=== PATIENT | male | born 1990 | race Caucasian/White ===

== ENCOUNTER 2022-05-21 12:53 | Emergency (ER) | payer BC, SELFPAY ==
[2022-05-21 12:56] VITALS: BP 131/81; PULSE 89; RESP 16; TEMP 36.3; O2SAT 99
--- NOTE | 2022-05-21 13:12 | ED.WOUNDLAC ---
HPI - Wound/Laceration General Chief Complaint: Wound/Laceration Stated Complaint: head lac Time Seen by Provider: 05/21/22 13:02 History of Present Illness HPI narrative: This is a 32-year-old male with no past medical history, presents to the emergency department after being hit in the head with a branch. He states he was clearing brush when a approximately 3 inch diameter branch swung and hit him in his head. He denies loss of consciousness, fall or other injury. He noted mild pain at the laceration site associated with minimal nausea, both of which have improved and resolved respectively. He has no other complaints today. He states his last tetanus shot was within the last 5 years. Related Data Home Medications Medication Instructions Recorded Confirmed No Home Medications 05/21/22 05/21/22 Allergies Allergy/AdvReac Type Severity Reaction Status Date / Time No Known Allergies Allergy Verified 05/21/22 12:58 Review of Systems Review of Systems: CONSTITUTIONAL: Denies fever, chills, or sweats. EYES: Denies visual changes, redness, or discharge. ENT: Denies rhinorrhea, congestion, sore throat, or otalgia. CARDIOVASCULAR: Denies chest pain, palpitations, or edema. RESPIRATORY: Denies cough or dyspnea. GASTROINTESTINAL: Denies abdominal pain, nausea, vomiting, or diarrhea. GENITOURINARY: Denies dysuria or hematuria. SKIN: Laceration of the left parietal scalp denies rash or itching. MUSCULOSKELETAL: Denies back pain, joint pain, or myalgia. NEUROLOGIC: Denies headache, numbness, dizziness, or weakness. PSYCHIATRIC: Denies anxiety or depression. Exam Narrative: GENERAL: Well-appearing, well-nourished, and in no acute distress. HEAD: Normocephalic, a 2 cm linear laceration is noted over the left parietal scalp approximately 10 cm above the left auricle, margins are clean, there is no noted foreign body EYES: PERRLA and EOMI. ENT: Nares clear, no rhinorrhea or epistaxis. Mucous membranes moist. Oropharynx without tonsillar hypertrophy exudate or other lesions. Bilateral TMs pearly madden nonbulging, no hemotympanum NECK: Supple. No adenopathy or masses. No carotid bruits or JVD CHEST: Clear to auscultation. No respiratory distress. No wheezes rales or rhonchi HEART: Regular rate and rhythm. No murmur heard. Normal peripheral pulses. ABDOMEN: Soft, nontender, nondistended, normal active bowel sounds. EXTREMITIES: Normal range of motion. No edema. SKIN: Warm, dry, no rash. NEURO: No focal deficits. Alert and oriented x3. No noted ataxia, patient ambulates without difficulty PSYCH: Normal mood and affect. Course Course Emergency Course: 13:13 - Laceration repaired with alonso (see procedure note). Discussed return emergency precautions including signs/symptoms of intracranial hemorrhage, the patient voiced understanding and is comfortable with the plan. All questions answered to his satisfaction. Vital Signs Vital signs: Vital Signs Temperature 97.4 F L 05/21/22 12:56 Pulse Rate 89 05/21/22 12:56 Respiratory Rate 16 05/21/22 12:56 Blood Pressure 131/81 05/21/22 12:56 Pulse Oximetry 99 05/21/22 12:56 Temperature 97.4 F L 05/21/22 12:56 Pulse Rate 89 05/21/22 12:56 Respiratory Rate 16 05/21/22 12:56 Blood Pressure 131/81 05/21/22 12:56 Pulse Oximetry 99 05/21/22 12:56 Procedures Laceration Laceration 1: Date: 05/21/22 Time: 13:08 Site: scalp Side (If applicable): left Size (cm): 2 Description: linear and clean Depth: simple, single layer Local Anesthetic: none Pre-repair: wound explored and irrigated ====== Skin Level ====== Skin layer closed with: alonso Number of sutures: 3 ====== Subcutaneous Layer ====== ====== Muscle Layer ====== ====== Tendon Layer ====== MDM - Wound/Laceration MDM Narrative Medical decision making narrative: Plan: Laceration repair Differ
== END 2022-05-21 13:49 | disposition home or self-care (01) ==
LOC: ANHED 13:41
PROVIDERS: Emergency Provider Preventive Medicine Aerospace Medicine
DX: S01.01XA Laceration without foreign body of scalp, initial encounter (principal); W22.8XXA Striking against or struck by other objects, initial encounter
CPT/HCPCS: 12001; 99282